=== PATIENT | female | born 1945 | race Caucasian/White ===

== ENCOUNTER 2018-11-30 09:07 | Outpatient (CLI) | payer MEDICARE ==
[~2018-11-30] VITALS: Ht 157.5 cm; Wt 51.8 kg
--- NOTE | ~2018-11-30 | HEMODYNAMI ---
PATIENT:LUZ MARIA SIDDIQUI MEDICAL RECORD: [id number] : 43 LOCATION:[facility] ADMISSION DATE: 11/30/18 Generatedon:11/30/201811:39 Patient name: LUZ MARIA SIDDIQUI Patient #: [id number] SSN: [id number] : 1945 Date of study: 11/30/2018 Page: Of Hemodynamic Procedure Report Patient Data Patient Demographics Procedure consent was obtained First Name: LUZ MARIA Gender: Female Last Name: CHEN : 1945 Patient #: [id number] Age: 73 year(s) Race: SSN: [id number] Additional ID: [id number] Contact details [address]: [address] [place] [address] State: [place]: [place] Zip code: [address] Past Medical History Allergies: No known allergies Admission Admission Data Admission Date: 11/30/2018 Admission Time: 9:07 Arrival Date: 11/30/2018 Arrival Time: 0:00 Height (in.): 62 BSA: 1.51 (m2) Height (cm.): 157.48 BMI: 20.97 (kg/m2) Weight (lbs.): 114.64 Weight (kg.): 52 Lab Results Lab Result Date: 11/30/2018 Lab Result Time: 0:00 Biochemistry Name Units Result Min Max BUN mg/dl 29 --(----)-* 7 18 Creatinine mg/dl 0.7 --(*---)-- 0.6 1.3 eGFR ml/min 87 -*(----)-- 90 120 NONAFRICAN CBC Name Units Result Min Max Hematocrit % 37.8 *-(----)-- 42 54 Hemoglobin g/dl 12.2 *-(----)-- 13.5 17.5 Procedure Procedure Types Cath Procedure Diagnostic Procedure LHC LHC w/Coronaries w/Grafts Procedure Description Procedure Date Procedure Date: 11/30/2018 Procedure Start Time: 11:25 Procedure End Time: 11:35 Procedure Staff Name Function Brian See MD Performing Physician Candice Izquierdo RT Monitor Rayna Stringer RT Scrub Mumtaz Zaragoza RN Nurse Procedure Data Cath Procedure Fluoroscopy Diagnostic fluoroscopy Total fluoroscopy Time: 2.7 time: 2.7 min min Diagnostic fluoroscopy Total fluoroscopy dose: 190 dose: 190 mGy mGy Contrast Material Contrast Material Type Amount (ml) Isovue 300 79 Entry Location Entry Primary Successful Side Size Upsize Upsize Entry Closure Succes sful Closure Location (Fr) 1 (Fr) 2 (Fr) Remarks Device Remarks Femoral Right 5 Fr Exoseal artery Estimated blood loss: 5 ml Diagnostic catheters Device Type Used For End Catheter Placement MULTIPACK Pigtail 5 Fr Procedure catheter MULTIPACK JL 4.0 5Fr Procedure catheter MULTIPACK 3DRC 5Fr Procedure catheter DIAGNOSTIC AR2 MOD 5 Fr Procedure catheter ([id number]) Procedure Complications No complications Procedure Medications Medication Administration Route Dosage 0.9% NaCl I.V. 100 ml/hr Oxygen etCO2 Nasal cannula 2 l/min Heparin Flush Bag added to field 2 bags (1000units/500ml NS) Lidocaine 2% added to field 20 Versed I.V. 1 mg Fentanyl I.V. 50 mcg Versed I.V. 1 mg Fentanyl I.V. 50 mcg Hemodynamics Rest BSA: 1.51 (m2) HGB: 12.2 (g/dl) O2 Consumption: Estimated: 130.48 (ml/min) O2 Co nsumption indexed: Estimated:86.41 (ml/min/m) Heart Rate: 57 (bpm) Snapshots Pre Cath Intra NCS Post Cath Vital Signs Time Heart Resp SPO2 etCO2 NIBP Rhythm Pain Sedation Rate (ipm) (%) (mmHg) (mmHg) Status Level (bpm) 11:10:37 58 17 100 30 124/55(70) NSR 0 (11) 10(A) , No pain 11:15:57 55 11 100 33 126/42(67) NSR 0 (11) 10(A) , No pain 11:20:58 54 12 100 32.2 121/50(95) NSR 0 (11) 10(A) , No pain 11:25:16 55 14 99 38.2 114/46(90) NSR 0 (11) 10(A) , No pain 11:29:32 53 19 97 29.2 107/42(88) NSR 0 (11) 9(A) , No pain 11:33:44 57 18 98 42 100/45(80) NSR 0 (11) 9(A) , No pain Medications Time Medication Route Dose Verified Delivered Reason Notes Eff ectiveness by by 11:20:06 0.9% NaCl I.V. 100 Mumtaz Mumtaz Per ml/hr Mila Zaragoza physician RN RN 11:20:17 Oxygen etCO2 2 Mumtaz Mumtaz for low 02 Nasal l/min Lorigan Lorigan sats cannula RN RN 11:20:29 Heparin Flush added 2 Mumtaz Mumtaz used for Bag to bags Lorigan Lorigan procedure (1000units/500ml field RN RN NS) 11:20:39 Lidocaine 2% added 20ml Mumtaz Mumtaz for local to vial Lorigan Lorigan anesthetic field RN RN 11:20:48 Versed I.V. 1 mg Mumtaz Mumtaz for Lorigan Lorigan sedation RN RN 11:20:55 Fentanyl I.V. 50 Mumtaz Mumtaz for mcg Lorigan Lorigan sedation RN RN 11:26:17 Versed I.V. 1 mg Mumtaz Mumtaz for Lorigan Lorigan sedation RN RN 11:26:22 Fentanyl I.V. 50 Mumtaz Mumtaz for mcg Lorigan Lorigan sedation RN web marketing strategist Log Time Note 10:48:39 Informed consent obtained and on chart 10:49:15 Time tracking: Regular hours (M-F 7:00 - 5:00) 10:49:19 Plan of Care:Hemodynamics will remain stable., Cardiac rhythm will remain stable., Comfort level will be maintained., Respiratory function will remain adequate., Patient/ family verbilizes understanding of procedure., Procedure tolerated without complication., Recovers from procedure without complications.. 10:49:21 Procedure Status Elective Heart Cath (OP). 10:49:23 Mumtaz Zaragoza RN sent for patient. Start room use. 10:49:26 Patient NPO since Midnight. 10:51:52 Patient Weight : 114.64 lbs 10:51:57 Patient Height : 62 inches 10:52:01 Arrival Date: 11/30/2018 12:00:00 AM 10:58:12 ACCPatient has been prescribed/administered the following anti-anginal medication within the last 2 weeks: Long-Acting Nitrates 10:59:01 ACC Patient presents with Stable Angina CCS Anginal Class 3--Marked limitation of physical activity, angina occurs with ordinary activity.. 10:59:51 Lab Result : BUN 29 mg/dl 10:59:51 Lab Result : eGFR NONAFRICAN 87 ml/min 10:59:51 Lab Result : Creatinine 0.7 mg/dl 10:59:51 Lab Result : Hemoglobin 12.2 g/dl 10:59:51 Lab Result : Hematocrit 37.8 % 11:00:55 Patient received from Pre/Post Procedure Room to CCL 1 Alert and oriented. Tansferred to table in Supine position. 11:00:56 Warm blankets applied, and joaquín hugger turned on for patient comfort. 11:00:57 Correct patient and procedure confirmed by team. 11:00:57 ECG and BP/O2 sat monitors applied to patient. 11:09:18 Vital chart was started 11:09:20 Baseline sample Acquired. 11:09:26 Rhythm: sinus bradycardia 11:09:27 Full Disclosure recording started 11:09:35 H&P Date Dictated: 11/28/2018 Within 30 days and on chart., H&P Addendum completed by physician on day of procedure. (MUST COMPLETE FOR ALL OUTPATIENTS). 11:09:36 Pre-procedure instructions explained to patient. 11:09:36 Pre-op teaching completed and patient verbalized understanding. 11:09:40 Family in patients room. 11:09:47 Patient allergic to No known allergies 11:09:50 Is patient on blood thinner?No 11:09:52 Patient diabetic? No. 11:09:55 Patient not . Patient is over age 55. 11:10:10 Previous problem with sedation/anesthesia? No ? 11:10:11 Snore? Yes 11:10:13 Sleep apnea? No 11:10:14 Opens mouth fully? No 11:10:15 Sticks out tongue? Yes 11:10:18 Airway obstruction? No ? 11:10:21 Dentures? Yes IN TIGHT 11:10:24 Pre procedure: right dorsailis pedis pulse 1+ Palpable, but thready & weak; easily obliterated 11:10:27 Patient pain scale 0/10 ?. 11:10:33 IV patent on arrival in left hand with 0.9% NaCl at [facility]. 11:10:35 Lab results completed and on chart. 11:10:38 Right groin area was prepped with chlora-prep and draped in sterile fashion 11:10:39 Alarms reviewed by R. N. 11:10:40 Sharps counted by scrub and verified by R.N. 11:10:43 Use device set Femoral Dx 11:10:44 ACIST Syringe (38117) opened to sterile field. 11:10:44 Bag Decanter (2002S) opened to sterile field. 11:10:45 ACIST Hand Control (25280) opened to sterile field. 11:10:45 ACIST Manifold (51613) opened to sterile field. 11:10:46 Tegaderm 4 x 4 (1626W) opened to sterile field. 11:10:47 Medline Cath Pack ([id number]) opened to sterile field. 11:10:48 DIAGNOSTIC Multipack 5Fr catheter set (MC5422) opened to sterile field. 11:10:49 SHEATH 5FR Blunt (AHW073) opened to sterile field. 11:10:49 EMERALD Guide Wire (052-664) opened to sterile field. 11:18:27 Zero performed for pressure channel P1 11:18:35 --------ALL STOP TIME OUT------ 11:18:35 Final Timeout: patient, procedure, and site verified with staff and physician. All members of the team are in agreement. 11:18:37 Right groin site verified by team. 11:18:40 Fire Safety Assessment: A--An alcohol-based skin anteseptic being used preoperatively., C--Open oxygen or nitrous oxide is being used., D--An ESU, laser, or fiber-optic light is being used. 11:18:43 Physical assessment completed. ASA score P 2 - A patient with mild systemic disease as per Brian See MD. 11:18:45 2) 60-89 Mildly reduced kidney function, and other findings (as for stage 1) point to kidney disease. 11:18:49 Maximum allowable contrast dose (3.7 X eGFR X 0.75)241 ml. 11:18:53 Sedation plan: IV Moderate Sedation Medication:Versed, Fentanyl 11:20:06 0.9% NaCl 100 ml/hr I.V. was administered by Mumtaz Zaragoza RN; Per physician; Verbal order read back and verified. 11:20:17 Oxygen 2 l/min etCO2 Nasal cannula was administered by Mumtaz Zaragoza RN; for low 02 sats; Verbal order read back and verified. 11:20:29 Heparin Flush Bag (1000units/500ml NS) 2 bags added to field was administered by Mumtaz Zaragoza RN; used for procedure; Verbal order read back and verified. 11:20:39 Lidocaine 2% 20ml vial added to field was administered by Mumtaz Zaragoza RN; for local anesthetic; Verbal order read back and verified. 11:20:48 Versed 1 mg I.V. was administered by Mumtaz Zaragoza RN; for sedation; Verbal order read back and verified. 11:20:55 Fentanyl 50 mcg I.V. was administered by Mumtaz Zaragoza RN; for sedation; Verbal order read back and verified. 11:25:18 Procedure started. 11:25:31 Local anesthetic to right femoral artery with Lidocaine 2% by Brian See MD.INITIAL ACCESS ONLY 11:26:03 A 5 Fr sheath was inserted into the Right Femoral artery 11:26:13 A MULTIPACK Pigtail 5 Fr catheter was advanced over the wire and used for Procedure. 11::17 Versed 1 mg I.V. was administered by Mumtaz Zaragoza RN; for sedation; Verbal order read back and verified. 11:26:22 Fentanyl 50 mcg I.V. was administered by Mumtaz Zaragoza RN; for sedation; Verbal order read back and verified. 11:27:01 LV gram done using AYOUB 11:27:07 Injector settings: Ml/sec: 10, Volume: 20, 11:27:21 EF : 50 % 11:27:22 Catheter removed. 11::27 A MULTIPACK JL 4.0 5Fr catheter was advanced over the wire and used for Procedure. 11:28:25 LCA angiography performed. 11:28:33 Catheter removed. 11::39 A MULTIPACK 3DRC 5Fr catheter was advanced over the wire and used for Procedure. 11:29:44 MAE to LAD angiography performed. 11:30:09 SVG to Diag angiography performed. 11:30:30 RCA angiography performed. 11:30:33 Catheter removed. 11:30:44 A DIAGNOSTIC AR2 MOD 5 Fr catheter ([id number]) was advanced over the wire and used for Procedure. 11:31:27 SVG to RCA angiography performed. 11:32:34 Catheter removed. 11:32:35 EXOSEAL 5Fr (EX500) opened to sterile field. 11:33:42 Sheath removed intact; hemostasis achieved with Exoseal to the Right Femoral artery. 11:33:43 Procedure ended.(Physican Out) 11:34:13 Fluoroscopy time 02.70 minutes. 11:34:18 Fluoroscopy dose: 190 mGy 11:34:18 Flurop Dose total: 190 11:34:22 Dose Area Product 9157 mGy/cm. 11:34:26 Contrast amount:Isovue 300 79ml. 11:34:29 Maximum allowable dose exceeded? No. 11:34:30 Sharps counted by scrub and verified by R.N. 11:34:33 Post-op/insertion site Right Femoral artery dressed using a 4 x 4 and Tegaderm. 11:34:36 Post-procedure physical assessment completed. ASA score P 2 - A patient with mild systemic disease as per Brian See MD. 11:34:42 Post procedure rhythm: sinus bradycardia 11:34:44 Estimated blood loss: 5 ml 11:34:45 Post procedure instruction explained to patient.Patient verbalizes understanding. 11:34:45 Patient needs reinforcement of post procedure teaching. 11:34:58 Procedure type changed to Cath procedure, Diagnostic procedure, LHC, LHC w/Coronaries w/Grafts 11:35:14 Procedure and supply charges have been captured, reviewed, submitted and are correct. 11:35:17 Procedure Complication : No complications 11:35:18 Vital chart was stopped 11:35:19 See physician's report for complete and final results. 11:35:22 Report given to Pre/Post Procedure Room. 11:35:24 Patient transfered to Pre/Post Procedure Room with Bed. 11:35:27 Procedure ended. 11:35:27 Full Disclosure recording stopped 11:35:30 End room use (Document Last) 11:38:55 End room use (Document Last) 11:39:14 End room use (Document Last) Device Usage Item Name Manufacture Quantity Catalog Hospital Part Current Minimal L ot# / Number Charge Number Stock Stock Serial# Code ACIST Acist 1 37254 648949 002194 133816 20 Etece (58612[employer] Bag Microtek 1 2001 366616 27430 544264 5 Decanter Medical Inc. () ACIST Hand Acist 1 22662 860460 428554 108905 5 Control Medical (66278) Systems Inc ACIST Acist 1 18148 153499 682294 746540 5 Manifold Medical (14156) Systems Inc Tegaderm 4 3M 1 1626W 734790 783195 862916 5 x 4 (1626W) Medline Medline 1 [id number] 421102 71977 697890 5 Cath Pack ([id number]) DIAGNOSTIC Cardinal 1 [id number] 327612 00562 740133 30 Multipack Health 5Fr catheter set (PQ6380) SHEATH 5FR Terumo 1 VUV709 472368 371305 142928 5 Blunt (HHT181) EMERALD Cardinal 1 502455 510889 593494 763609 5 Guide Wire Health (502455) MULTIPACK Cardinal 1 540819 5 Pigtail 5 Health Fr catheter MULTIPACK Cardinal 1 494370 5 JL 4.0 5Fr Health catheter MULTIPACK Cardinal 1 137792 5 3DRC 5Fr Health catheter DIAGNOSTIC Cardinal 1 [id number] 323079 010532 066052 20 AR2 MOD 5 Health Fr catheter (973730W) EXOSEAL 5Fr Cardinal 1 EX500 874183 528796 750024 10 (EX500) Health Signature Audit Arboles Stage Time Signature Unsigned Intra-Procedure 11/30/2018 Candice Izquierdo 11:38:55 AM RT(R) Intra-Procedure 11/30/2018 Mumtaz 11:39:14 AM Mila CIFUENTES Intra-Procedure 11/30/2018 Brian See 11:39:33 AM [id number] [place] [address]
[2018-11-30] MEDS ORDERED: COREG6.25 MG PO (09:32)
[2018-11-30] MEDS ORDERED: NORVASC5 MG PO (09:33)
[2018-11-30] MEDS ORDERED: ISOSORBIDE MONO30 M1 PO (09:34)
[2018-11-30] MEDS ORDERED: ULTRAM50 MG PO (09:35)
[2018-11-30 09:49] VITALS: BP 134/51; Ht 157.5 cm; Wt 51.8 kg
[2018-11-30 09:54] LABS: BASOPHILS 0.5 % (0-2); EOSINOPHILS 3.7 % (0-7); HEMATOCRIT 37.8 % (36.0-48.0); HEMOGLOBIN 12.2 g/dL (12-16); LYMPHOCYTES 37.9 % (15-50); MCH 29.7 pg (26.0-34.0); MCHC 32.3 g/dL (31.0-37.0); MEAN PLATELET VOLUME 9.3 fL (7.4-10.4); NEUTROPHILS 47.9 % (40-80); PLATELET COUNT 250 10x3/uL (130-400); RBC 4.11 10x6/uL (4.00-5.40); RDW 12.8 % (11.5-14.5); WBC 6.5 10x3/uL (4.8-10.8)
[2018-11-30 10:17] LABS: ALT (SGPT) 14 U/L (10-68); CHOLESTEROL, TOTAL 188 mg/dL (0-200); HDL CHOLESTEROL 63 mg/dL (32-96); LDL CHOLESTEROL 109 mg/dL (0-100); LDL-HDL RATIO 1.7 ratio (1.5-3.5); TRIGLYCERIDE 82 mg/dL (30-200)
[2018-11-30 10:24] LABS: CALC OSMOLALITY 281 mosm/kg (275-300); CALCIUM 8.8 mg/dL (8.5-10.1); CHLORIDE - SERUM 102 mmol/L (98-107); CREATININE - SERUM 0.7 mg/dL (0.6-1.3); GLUCOSE 107 mg/dL (74-106); POTASSIUM - SERUM 3.9 mmol/L (3.5-5.1); SODIUM 138 mmol/L (136-145); UREA NITROGEN 29 mg/dL (7-18); eGFR NON AFRICAN AMERICAN 87 mL/min (90-120)
--- NOTE | 2018-11-30 12:07 | NUR ---
PT IS ALERT, VISITING WITH FAMILY IN THE ROOM, HOB IS FLAT, DRESSING IS CDI TO RIGHT GROIN, AREA IS SOFT AND NONTENDER. SINUS SG, RATE IS 59, BP 102/48. PT DENIES ANY C/O CHEST PAIN. CALL LIGHT IN REACH
--- NOTE | 2018-11-30 12:20 | NUR ---
DR DONIS HAS ROUNDED ON PT
--- NOTE | 2018-11-30 12:41 | NUR ---
PT IS ALERT, DENIES ANY C/O. DRESSING IS CDI TO RIGHT GROIN, AREA IS SOFT AND NONTENDER. PEDAL PULSES PALPABLE. HOB FLAT. SINUS SG AT 57, BP IS 122/45, PT DENIES ANY C/O CHEST PAIN.
--- NOTE | 2018-11-30 13:06 | NUR ---
HOB ELEVATED 30 DEGREES, SANDWICH AND PO FLUIDS SERVED. DRESSING REMAINS CDI, PEDAL PULSES PALPABLE. NSR, RATE 65. BP IS 107/41. PT IS ALERT AND DENIES ANY C/O.
--- NOTE | 2018-11-30 14:07 | NUR ---
1325 HOB FULLY ELEVATED. DRESSING REMAINS CDI RIGHT GROIN, PEDAL PULSES PALPABLE. PT IS ALERT AND DENIES ANY C/O. HAS ASHLEY SANDWICH WITH NO C/O NAUSEA. 1340 IV DC'D WITH CATH INTACT. ASSISTED PT WITH DRESSING FOR DC TO HOME. PT IS ALERT, DRESSING CDI. 1345 ASSISTED PT TO THE BATHROOM, PT VOIDED LARGE QUANTITY OF URINE. 1355 DC INSTRUCTIONS REVIEWED WITH PT AND [id number] WHO VERBALIZE UNDERSTANDING. DRESSING REMAINS CDI RIGHT GROIN, PT IS ALERT AND DENIES ANY C/O. PT ESCORTED TO PRIVATE AUTO VIA WC BY NURSE WITH [id number] DRIVING HER HOME.
--- NOTE | 2018-12-08 13:30 | OP ---
PATIENT NAME: LUZ MARIA SIDDIQUI MEDICAL RECORD: [id number] :43 LOCATION:D.CAT ADMISSION DATE: SURGEON: FRANCOIS DONIS MD DATE OF OPERATION: 11/30/2018 PROCEDURES: 1. Left heart catheterization. 2. Selective coronary angiography. 3. Vein graft angiography. 4. MAE angiography. 5. Left ventriculogram. INDICATIONS: Angina and coronary artery disease. PROCEDURE IN DETAIL: After informed consent was obtained and after a detailed explanation of risks, benefits as well as alternative therapies, the patient elected to proceed with angiogram and heart catheterization. The right femoral area was prepped and draped in normal sterile fashion. Right femoral artery was cannulated via modified Seldinger technique with placement of 6-Spanish sheath. FINDINGS: Left ventriculogram was performed in standard 30-degree AYOUB view, reveals good cardiac wall motion, ejection fraction 50%. SELECTIVE CORONARY ANGIOGRAPHY: 1. Left main is with no significant angiographic disease. 2. Left anterior descending is totally occluded. 3. MAE to the LAD is widely patent. Distal LAD is small and diffusely diseased well, but widely patent. 4. Vein graft to the LAD diagonal is widely patent. Distal LAD diagonal is widely patent. 5. The left circumflex has mild irregularities. No flow limiting stenosis. The vein graft to the circumflex is closed. 6. Right coronary is totally occluded. 7. Vein graft to the right coronary artery is widely patent. Distal right coronary is widely patent. OVERALL IMPRESSION: Wide patency of the graft to the LAD, LAD diagonal, and RCA. Wide patency of the oneida circumflex. At this time, continue medical management of the coronary artery disease and cardiac risk factors. TRANSINT:[id number] Voice Confirmation ID: [id number] DOCUMENT ID: [id number] FRANCOIS DONIS MD at 1330 CC: [id number] DICTATION DATE: 11/30/18 1140 SUPERVISING CHEF: 11/30/18 1231 DEP CLI 11/30/[address] [address]
== END 2018-11-30 13:45 | disposition home or self-care (01) ==
LOC: D.CATH 09:07
PROVIDERS: ATTEND Internal Medicine Interventional Cardiology
DX: I25.110 Atherosclerotic heart disease of native coronary artery with unstable angina pectoris (principal)

== ENCOUNTER 2020-05-01 08:00 | Outpatient (CLI) | payer MEDICARE ==
[~2020-05-01 08:00] MED LIST: COREG6.25 MG PO; ISOSORBIDE MONO30 M1 PO; NORVASC5 MG PO; ULTRAM50 MG PO
[2020-05-01] MEDS ORDERED: OMEPRAZOLE20 M1 PO (16:15)
[2020-05-01 17:11] LABS: HEMATOCRIT 41.1 % (36.0-48.0); HEMOGLOBIN 13.3 g/dL (12-16); MCHC 32.4 g/dL (31.0-37.0); MCV 92.6 fL (80.0-100.0); MEAN PLATELET VOLUME 8.8 fL (7.4-10.4); RBC 4.44 10x6/uL (4.00-5.40); RDW 12.8 % (11.5-14.5); WBC 7.5 10x3/uL (4.8-10.8)
[2020-05-01 17:14] LABS: BILIRUBIN NEGATIVE (NEGATIVE); KETONE NEGATIVE (NEGATIVE); NITRITE NEGATIVE (NEGATIVE); UROBILINOGEN NORMAL mg/dL (< 2)
[2020-05-01 17:15] LABS: SQUAMOUS EPITHELIAL 0-5 HPF (0-4); WHITE CELLS - URINE 0-5 HPF (0-4)
[2020-05-01 17:16] LABS: BACTERIA MODERATE HPF (NONE SEEN)
[2020-05-01 17:18] LABS: APTT 25.5 SECONDS (22.8-39.4); INR 0.98 (0.85-1.17)
[2020-05-01 17:27] LABS: ALBUMIN 3.9 g/dL (3.4-5.0); ANION GAP 14.7 mmol/L (8-16); BILIRUBIN - TOTAL 0.64 mg/dL (0.2-1.3); CALCIUM 8.7 mg/dL (8.5-10.1); CARBON DIOXIDE 26.8 mmol/L (21.0-32.0); CREATININE - SERUM 0.9 mg/dL (0.6-1.3); POTASSIUM - SERUM 3.5 mmol/L (3.5-5.1); PROTEIN - SERUM 6.9 g/dL (6.4-8.2)
[2020-05-03 13:28] VITALS: BMI 20.7
== END 2020-05-01 08:01 | disposition home or self-care (01) ==
LOC: D.OPS 08:00 → D.SDCHOLD 05-07 07:30 → EDSTATUS 05-07 07:30 → D.SDCHOLD 05-07 09:00
PROVIDERS: ATTEND Thoracic Surgery (Cardiothoracic Vascular Surgery)
DX: I65.29 Occlusion and stenosis of unspecified carotid artery (principal)

== ENCOUNTER 2020-05-03 12:17 | Outpatient (CLI) | payer MEDICARE ==
[~2020-05-03] VITALS: Ht 157.5 cm; Wt 51.4 kg
[~2020-05-03 12:17] MED LIST changes: +OMEPRAZOLE20 M1 PO
[2020-05-03 13:28] VITALS: Ht 157.5 cm; Wt 51.4 kg
[2020-05-03 14:07] LABS: BILIRUBIN NEGATIVE (NEGATIVE); KETONE NEGATIVE (NEGATIVE); NITRITE NEGATIVE (NEGATIVE); UROBILINOGEN NORMAL mg/dL (< 2)
[2020-05-03 14:08] LABS: BACTERIA MODERATE HPF (NONE SEEN); SQUAMOUS EPITHELIAL 0-5 HPF (0-4); WHITE CELLS - URINE RARE HPF (0-4)
== END 2020-05-03 13:36 | disposition home or self-care (01) ==
LOC: D.OPS 12:17
PROVIDERS: ATTEND Thoracic Surgery (Cardiothoracic Vascular Surgery)
DX: N39.0 Urinary tract infection, site not specified (principal)

== ENCOUNTER 2020-05-20 07:30 | Inpatient (IN) | payer MEDICARE ==
[~2020-05-20] VITALS: Ht 157.5 cm; Wt 53.4 kg
[2020-05-20] VITALS (16 sets, daily range): BP systolic 97–137; BP diastolic 40–68; Ht 157.5 cm; Wt 53.4 kg
[2020-05-20 12:05] LABS: APTT 26.5 SECONDS (22.8-39.4); INR 1.19 (0.85-1.17)
--- NOTE | 2020-05-20 12:08 | NUR ---
CVL AND ARTERIAL LINE PLACED BY ANESTHESIA, CARRIE.
[2020-05-20 16:01] LABS: BILIRUBIN NEGATIVE (NEGATIVE); KETONE 3+ mg/dL (NEGATIVE); NITRITE NEGATIVE (NEGATIVE); UROBILINOGEN NORMAL mg/dL (< 2)
[2020-05-20 16:03] LABS: BACTERIA FEW HPF (NONE SEEN); GRANULAR CAST 0-5 LPF (NONE SEEN); SQUAMOUS EPITHELIAL 0-5 HPF (0-4); WHITE CELLS - URINE 0-5 HPF (0-4)
[2020-05-21] VITALS (28 sets, daily range): BP systolic 104–150; BP diastolic 42–93
[2020-05-21 05:16] LABS: BASOPHILS 0.4 % (0-2); EOSINOPHILS 2.1 % (0-7); HEMATOCRIT 35.1 % (36.0-48.0); HEMOGLOBIN 11.6 g/dL (12-16); IMMATURE GRANULOCYTES 0.1 % (0-5); LYMPHOCYTES 26.4 % (15-50); MCH 29.9 pg (26.0-34.0); MCV 90.5 fL (80.0-100.0); MEAN PLATELET VOLUME 8.7 fL (7.4-10.4); MONOCYTES 13.3 % (2-11); NEUTROPHIL ABS# 4.36 10x3/uL (1.56-6.13); NEUTROPHILS 57.7 % (40-80); PLATELET COUNT 205 10x3/uL (130-400); RBC 3.88 10x6/uL (4.00-5.40); RDW 12.9 % (11.5-14.5); WBC 7.6 10x3/uL (4.8-10.8)
[2020-05-21 05:46] LABS: CALC OSMOLALITY 269 mosm/kg (275-300); CARBON DIOXIDE 23.2 mmol/L (21.0-32.0); CHLORIDE - SERUM 103 mmol/L (98-107); CREATININE - SERUM 0.6 mg/dL (0.6-1.3); GLUCOSE 81 mg/dL (74-106); POTASSIUM - SERUM 3.3 mmol/L (3.5-5.1); SODIUM 136 mmol/L (136-145); UREA NITROGEN 10 mg/dL (7-18); eGFR NON AFRICAN AMERICAN > 90 mL/min (90-120)
--- NOTE | 2020-05-21 15:37 | OP ---
PATIENT NAME: LUZ MARIA SIDDIQUI MEDICAL RECORD: [id number] :44 LOCATION:[facility] ADMISSION DATE:05/20/20 SURGEON: ZIYAD MEDEROS MD DATE OF OPERATION: 05/20/2020 SURGEON: Ziyad Mederos MD PROCEDURE PERFORMED: Left carotid endarterectomy. PREOPERATIVE DIAGNOSIS: Symptomatic left carotid stenosis. POSTOPERATIVE DIAGNOSIS: Symptomatic left carotid stenosis. ANESTHESIA: General endotracheal anesthesia. ESTIMATED BLOOD LOSS: 10 mL. SPECIMENS: Plaque. COMPLICATIONS: None. CONDITION: Stable. DISPOSITION: CV ICU. OPERATIVE FINDINGS: 1. Irregular and densely calcified plaque in the carotid bulb and proximal internal carotid artery. The plaque feathered well distally and a CorMatrix patch was used for closure. 2. Neurologically intact to ICU. OPERATIVE INDICATIONS: Symptomatic left severe carotid stenosis. DESCRIPTION OF PROCEDURE: The patient was brought to the operating suite. General anesthesia was obtained, the patient was prepped and draped. An oblique incision was made in the left neck and taken down through the subcutaneous tissue to the common carotid, which was dissected out sparing the vagus nerve. Large facial venous branch was divided between ligatures and suture ligatures. Smaller branches divided between ligatures. External carotid and thyroid branch were dissected out and encircled with vessel loop. The hypoglossal nerve was identified ANSA was clipped and exposure of the distal internal carotid. Heparin was given. After the heparin had circulated backbleeding the internal carotid was controlled with a bulldog clamp and flow with a vascular clamp and backbleeding in the external carotid and thyroid branch controlled with vessel loops. After the EEG was normal for 2 minutes and the cerebral oximetry remained normal, arteriotomy was begun in the common carotid artery and taken out through the region of dense calcification into a relatively normal region of internal carotid. Backbleeding was inspected and it was excellent from the internal carotid and external carotid. The plaque was divided in the common carotid artery with an eversion endarterectomy of the external carotid and then due to the thick, irregular plaque, it was actually split apart into 2 small pieces distally, but it feathered well thoroughly irrigated. All bits of loose debris were removed. The patch was fashioned to the appropriate size and sutured along the edge of the arteriotomy. Prior to completing the anastomosis, backbleeding was again allowed from all 3 major vessels and thorough irrigation OPERATIVE REPORT [id number] LUZ MARIA SIDDIQUI of endarterectomy bed was performed. Anastomosis was completed. Flow was restored first to the external carotid and then to the internal carotid. Interrupted patch suture was used for hemostasis. Protamine was given. Thorough irrigation was undertaken. A drain was placed through a separate stab wound. Hemostasis was ensured. Antibiotic irrigation was performed. Neck was closed in 3 layers and Dermabond on the skin. Needle and sponge counts were correct. Anesthesia reversed. The patient is neurologically intact to CV ICU. TRANSINT:[id number] Voice Confirmation ID: [id number] DOCUMENT ID: [id number] ZIYAD MEDEROS MD at 1537 CC: ARASELI YOUNG [id number] DICTATION DATE: 05/20/20 1342 LOGISTICS SUPPLY OFFICER: 05/20/20 8654 ADM IN [facility] [address] [place] [address]
[2020-05-21] MEDS ORDERED: PLAVIX75 MG PO (15:43)
[2020-05-21] MEDS ORDERED: ASPIRIN81 MG PO (15:44)
[2020-05-21] MEDS ORDERED: ULTRAM50 MG PO (15:47)
[2020-05-22] VITALS (11 sets, daily range): BP systolic 131–155; BP diastolic 41–72
--- NOTE | 2020-05-22 06:19 | NUR ---
Shift summary: Patient ambulated frequently to bathroom with standby assist. Denies any pain. Good intake of oral fluids. Up to chair this morning.
--- NOTE | 2020-05-22 09:26 | NUR ---
CVL DCD PER PROTOCOL TIP INTACT
--- NOTE | 2020-05-22 10:57 | NUR ---
PT DCD WITH FRIEND, DENIES ALL QUESTIONS
== END 2020-05-22 10:57 | disposition home or self-care (01) | DRG 39 ==
LOC: D.SDCHOLD 07:30 → D.CVICU 08:00 → D.SDCHOLD 08:00 → D.CVICU 13:11 → D.SDCHOLD 05-21 07:30 → D.CVICU 05-22 10:57
PROVIDERS: ADMIT Thoracic Surgery (Cardiothoracic Vascular Surgery); ATTEND Thoracic Surgery (Cardiothoracic Vascular Surgery)
PROC: 03CL0ZZ Extirpation of Matter from Left Internal Carotid Artery, Open Approach (ICD-10-PCS; principal; 2020-05-20 09:00)
DX: I65.22 Occlusion and stenosis of left carotid artery (principal); I10 Essential (primary) hypertension; K21.9 Gastro-esophageal reflux disease without esophagitis; M19.90 Unspecified osteoarthritis, unspecified site

== ENCOUNTER 2020-06-28 17:02 | Inpatient (IN) | payer MEDICARE ==
[~2020-06-28] VITALS: Ht 157.5 cm; Wt 49.0 kg
[~2020-06-28 17:02] MED LIST changes: +ASPIRIN81 MG PO; +PLAVIX75 MG PO
[2020-06-28 17:31] LABS: BASOPHILS 0.2 % (0-2); EOSINOPHILS 2.2 % (0-7); HEMATOCRIT 39.4 % (36.0-48.0); HEMOGLOBIN 12.9 g/dL (12-16); IMMATURE GRANULOCYTES 0.2 % (0-5); LYMPHOCYTE ABS# 2.64 10x3/uL (1.18-3.74); LYMPHOCYTES 27.6 % (15-50); MCH 30.2 pg (26.0-34.0); MCHC 32.7 g/dL (31.0-37.0); MCV 92.3 fL (80.0-100.0); MEAN PLATELET VOLUME 9.2 fL (7.4-10.4); MONOCYTES 8.2 % (2-11); NEUTROPHIL ABS# 5.89 10x3/uL (1.56-6.13); NEUTROPHILS 61.6 % (40-80); RBC 4.27 10x6/uL (4.00-5.40); RDW 13.8 % (11.5-14.5); WBC 9.6 10x3/uL (4.8-10.8)
[2020-06-28 17:36] LABS: PLATELET COUNT 322 10x3/uL (130-400)
[2020-06-28 17:40] LABS: CALC OSMOLALITY 276 mosm/kg (275-300); CALCIUM 8.9 mg/dL (8.5-10.1); CARBON DIOXIDE 25.1 mmol/L (21.0-32.0); CHLORIDE - SERUM 102 mmol/L (98-107); CREATININE - SERUM 0.8 mg/dL (0.6-1.3); GLUCOSE 96 mg/dL (74-106); POTASSIUM - SERUM 3.6 mmol/L (3.5-5.1); SODIUM 139 mmol/L (136-145); UREA NITROGEN 10 mg/dL (7-18); eGFR NON AFRICAN AMERICAN 74 mL/min (90-120)
--- NOTE | 2020-06-28 17:54 | NUR ---
JD ZAVALA, WITH [facility], AT BEDSIDE FOR EVALUATION.
[2020-06-28 18:00] LABS: ALBUMIN 3.4 g/dL (3.4-5.0); ALKALINE PHOSPHATASE 156 U/L (30-120); ALT (SGPT) 21 U/L (10-68); BILIRUBIN - TOTAL 0.73 mg/dL (0.2-1.3); CKMB 6.2 U/L (0.0-3.6); CREATINE KINASE 258 UL (21-215); MAGNESIUM - SERUM 2.1 mg/dL (1.8-2.4); PRO BNP 3858 pg/mL (0-450); PROTEIN - SERUM 6.8 g/dL (6.4-8.2)
[2020-06-28 18:06] LABS: TROPONIN-I 0.922 ng/mL (0.000-0.060)
--- NOTE | 2020-06-28 20:26 | NUR ---
ARRIVED VIA STSRETCHER FROM ER. NO DISTRESS NOTED.
[2020-06-28] MEDS ORDERED: MULTI-DAY VITAM1 TAB PO (20:38)
[2020-06-28 20:45] VITALS: BP 152/58
[2020-06-28 21:28] VITALS: BP 152/58; BMI 19.6
--- NOTE | 2020-06-28 22:13 | NUR ---
VSS. SB PER CM HR 54. ADMISSION PER M AGUSTIN CIFUENTES. IV TO LAC WITH NS AT 50CC/HR. IV PATENT. UP TO BR WITH ASSIST. VOIDED MODERATE AMOUNT OF URINE. BACK TO BED WITH ASSIST. PT HAS C/O CONSTIPATION. DUCOLAX PO GIVEN IN ER PRIOR TO ARRIVAL ON FLOOR. SALAS PATTON ORIENTED TO PERSON, PLACE AND TIME. EREN. SR UP X2, CALL LIGHT WITHIN REACH.
--- NOTE | 2020-06-29 00:43 | NUR ---
EKG DONE. PT DENIES ANY DISCOMFORT. SR UP X2, CALL LIGHT WITHIN REACH.
--- NOTE | 2020-06-29 00:54 | NUR ---
PT HAD A RUN OF 8 VTACH PER MARKETING PROJECT COORDINATOR. PT ASYMPTOMATIC.
[2020-06-29 01:33] VITALS: BP 143/60
[2020-06-29 01:34] VITALS: BP 143/60
--- NOTE | 2020-06-29 02:21 | NUR ---
PT RESTING WITH EYES CLOSED. RESP EVEN AND REGULAR. SR UP X2, CALL LIGHT WITHIN REACH.
[2020-06-29 02:30] LABS: CKMB 3.3 U/L (0.0-3.6); CREATINE KINASE 164 UL (21-215); TROPONIN-I 0.613 ng/mL (0.000-0.060)
--- NOTE | 2020-06-29 04:24 | NUR ---
PT RESTING WITH EYES CLOSED. RESP EVEN AND REGULAR. CALL LIGHT WITHIN REACH.
[2020-06-29 06:11] VITALS: BP 173/72
--- NOTE | 2020-06-29 06:25 | NUR ---
MORPHINE 2MG SIVP GIVEN FOR C/O CHRONIC L KNEE PAIN. BP ELEVATED THIS AM. EKG DONE. SR/SB PER CM. PT NPO UNTIL SEEN BY CARDIOLOGY. NEEDS MET; WILL CONTINUE TO MONITOR.
[2020-06-29 06:48] LABS: BASOPHILS 0.3 % (0-2); EOSINOPHILS 4.4 % (0-7); HEMATOCRIT 34.6 % (36.0-48.0); HEMOGLOBIN 11.1 g/dL (12-16); IMMATURE GRANULOCYTES 0.2 % (0-5); LYMPHOCYTE ABS# 1.79 10x3/uL (1.18-3.74); LYMPHOCYTES 28.1 % (15-50); MCH 29.4 pg (26.0-34.0); MCHC 32.1 g/dL (31.0-37.0); MCV 91.5 fL (80.0-100.0); MEAN PLATELET VOLUME 9.6 fL (7.4-10.4); MONOCYTES 12.1 % (2-11); NEUTROPHILS 54.9 % (40-80); PLATELET COUNT 281 10x3/uL (130-400); RBC 3.78 10x6/uL (4.00-5.40); RDW 13.9 % (11.5-14.5)
[2020-06-29 06:55] LABS: WBC 6.4 10x3/uL (4.8-10.8)
--- NOTE | 2020-06-29 07:00 | NUR ---
RECEIVED REPORT. ASSUMED CARE OF PATIENT. PATIENT RESTING WELL WITH EYES OPEN, DENIES PAIN. WHITE BOARD UPDATED, BEDSIDE SHIFT REPORT COMPLETE. NO DISTRESS. CALL LIGHT WITHIN REACH.
[2020-06-29 07:24] LABS: ALBUMIN 2.7 g/dL (3.4-5.0); ALKALINE PHOSPHATASE 123 U/L (30-120); ALT (SGPT) 16 U/L (10-68); BILIRUBIN - TOTAL 0.52 mg/dL (0.2-1.3); CALC OSMOLALITY 280 mosm/kg (275-300); CALCIUM 8.1 mg/dL (8.5-10.1); CARBON DIOXIDE 26.6 mmol/L (21.0-32.0); CHLORIDE - SERUM 106 mmol/L (98-107); CKMB 2.4 U/L (0.0-3.6); CREATINE KINASE 136 UL (21-215); CREATININE - SERUM 0.6 mg/dL (0.6-1.3); GLUCOSE 84 mg/dL (74-106); MAGNESIUM - SERUM 2.1 mg/dL (1.8-2.4); PHOSPHOROUS 3.4 mg/dL (2.5-4.9); PROTEIN - SERUM 5.6 g/dL (6.4-8.2); SODIUM 142 mmol/L (136-145); UREA NITROGEN 11 mg/dL (7-18); eGFR NON AFRICAN AMERICAN > 90 mL/min (90-120)
[2020-06-29 07:37] LABS: APTT 28.5 SECONDS (22.8-39.4); INR 1.1 (0.85-1.17); PROTIME 13.1 SECONDS (11.6-15.0)
[2020-06-29 08:26] VITALS: BP 155/60
--- NOTE | 2020-06-29 11:15 | NUR ---
ASSISTED PATIENT OOB TO RESTROOM AND BACK TO BED. CALL LIGHT WITHIN REACH. NO DISTRESS. DENIES NEEDS.
[2020-06-29 12:43] VITALS: Ht 157.5 cm; Wt 49.0 kg
[2020-06-29 13:17] LABS: CKMB 2.2 U/L (0.0-3.6); CREATINE KINASE 124 UL (21-215)
[2020-06-29 13:20] LABS: TROPONIN-I 0.335 ng/mL (0.000-0.060)
[2020-06-29 15:20] VITALS: BP 107/42
--- NOTE | 2020-06-29 19:52 | NUR ---
INITIAL ROUNDS COMPLETED. PT DENIED ANY DISCOMFORT. SR UP X3, CALL LIGHT WITHIN REACH.
[2020-06-29 21:01] VITALS: BP 175/50; BP 75/50
--- NOTE | 2020-06-29 23:54 | NUR ---
ASSESSMENT COMPLETED AT 2009 HRS. VSS. SR PER CM HR 65. ALERT AND ORIENTED TO PERSON, PLACE AND TIME. JASON. PALPABLE PERIPHERAL PULSES. IV TO LAC WITH NS AT 50CC/HR. IV PATETN. LUNGS ESSENTIALLY CTA. ABD SOFT WITH ACTIVE BS NOTED. AREA AROUND ANUS EXCORIATED. MARY JO'S APPLIED. L LEG MINIMAL WT BEARING. ASSISTED PT TO BR. VOISED 250CC OF YELLOW URINE. ASSISTED BACK TO BED. PM MEDS GIVEN. PT CURRENTLY RESTING WITH EYES CLOSED. RESP EVEN AND REGULAR. SR UP X2, CALL LIGHT WITHIN REACH.
[2020-06-30 03:07] VITALS: BP 138/52
--- NOTE | 2020-06-30 03:52 | NUR ---
PT RESTING WITH EYES CLOSED. RESP EVEN AND REGULAR. SR UP X2, CALL LIGHT WITHIN REACH.
--- NOTE | 2020-06-30 06:08 | NUR ---
VSS THROUGHOUT NIGHT. SR PER CM. PT DENIED ANY CP. NEEDS MET; WILL CONTINUE TO MONITOR.
[2020-06-30 06:24] LABS: BASOPHILS 0.5 % (0-2); EOSINOPHILS 6.4 % (0-7); HEMATOCRIT 32.8 % (36.0-48.0); HEMOGLOBIN 10.4 g/dL (12-16); IMMATURE GRANULOCYTES 0.3 % (0-5); LYMPHOCYTE ABS# 1.68 10x3/uL (1.18-3.74); LYMPHOCYTES 28.9 % (15-50); MCH 29.4 pg (26.0-34.0); MCHC 31.7 g/dL (31.0-37.0); MCV 92.7 fL (80.0-100.0); MEAN PLATELET VOLUME 9.4 fL (7.4-10.4); MONOCYTES 13.4 % (2-11); NEUTROPHIL ABS# 2.94 10x3/uL (1.56-6.13); NEUTROPHILS 50.5 % (40-80); PLATELET COUNT 247 10x3/uL (130-400); RBC 3.54 10x6/uL (4.00-5.40); RDW 13.9 % (11.5-14.5); WBC 5.8 10x3/uL (4.8-10.8)
--- NOTE | 2020-06-30 07:00 | NUR ---
RECEIVED REPORT. ASSUMED CARE OF PATIENT. CALL LIGHT WITHIN REACH. WHITE BOARD UPDATED, BEDSIDE SHIFT REPORT COMPLETE. PATIENT HAS NO COMPLAINTS AT THIS TIME. NO DISTRESS NOTED.
[2020-06-30 07:11] LABS: ALBUMIN 2.6 g/dL (3.4-5.0); ALKALINE PHOSPHATASE 115 U/L (30-120); ALT (SGPT) 17 U/L (10-68); BILIRUBIN - TOTAL 0.46 mg/dL (0.2-1.3); CALCIUM 8.6 mg/dL (8.5-10.1); CARBON DIOXIDE 26.5 mmol/L (21.0-32.0); CHLORIDE - SERUM 105 mmol/L (98-107); CREATININE - SERUM 0.6 mg/dL (0.6-1.3); GLUCOSE 108 mg/dL (74-106); MAGNESIUM - SERUM 2.3 mg/dL (1.8-2.4); PROTEIN - SERUM 5.4 g/dL (6.4-8.2); SODIUM 139 mmol/L (136-145); eGFR NON AFRICAN AMERICAN > 90 mL/min (90-120)
[2020-06-30 07:12] LABS: CALC OSMOLALITY 276 mosm/kg (275-300); PHOSPHOROUS 2.4 mg/dL (2.5-4.9); POTASSIUM - SERUM 4.1 mmol/L (3.5-5.1); UREA NITROGEN 8 mg/dL (7-18)
--- NOTE | 2020-06-30 07:28 | NUR ---
PATIENT EXTREMELY UPSET, CRYING, REQUESTING TO GO HOME. PATIENT STATES SHE CANT GET CARES FAST ENOUGH BUT WHEN SHE DOES GET CARES, THEY ARE EXCELLENT. PATIENT COMPLAINS SHE DOES NOT HAVE A WALKER HERE AND UNABLE TO GO TO THE BATHROOM WHEN SHE NEEDS TO GO. THIS SAILOR CONTACTED PHYSICAL THERAPY AND HAS REQUESTED A WALKER FOR PATIENT. THIS SAILOR APOLOGIZED TO PATIENT FOR DELAY IN CARES. QUESTIONED PROGRAMS MANAGER NURSE ABOUT ACTIVITIES WITH PATIENT THROUGHOUT THE NIGHT AND WAS TOLD PATIENTS NURSE WAS IN PATIENT ROOM MOST OF THE NIGHT PROVIDING ADLS TO PATIENT. WILL CONTINUE TO MONTIOR PATIENT USE OF CALL LIGHT.
--- NOTE | 2020-06-30 07:57 | NUR ---
ANSWERED PATIENT CALL LIGHT, ASSISTED PATIENT OFF THE BEDPAN. OFFERED TO ASSIST TO CHAIR AT BEDSIDE PATIENT COMPLAINING SHE HAS TO LAY IN THE BED AND AT HOME SHE IS ABLE TO DO WHAT SHE WANTS. PATIENT REFUSED TO GET OOB TO CHAIR AT BEDSIDE AND CONTINUES TO REQUEST FOR MD ORDER TO GO HOME. PATIENT STATES SHE HAS HAD NO CHEST PAIN SINCE SHE WAS ADMITTED AND NOW HER BOWELS ARE MOVING AND SHE FEELS BETTER AND WANTS TO CANCEL ALL TEST AND GO HOME AND SHE DOESNT WANT TO COME BACK FOR ANY TEST EITHER. INFORMED PATIENT THIS NEWSPAPER OR PERIODICAL EDITOR WOULD MAKE HER REQUEST KNOWN TO THE PROVIDERS.
[2020-06-30 08:27] VITALS: BP 155/72
--- NOTE | 2020-06-30 08:30 | NUR ---
PATIENT PAN SHOVER LIGHT AGAIN, WONDERING WHERE HER BREAKFAST IS, THIS INTERNET MERCHANT INFORMED HER THAT DIETARY (ANGEL) HAS BEEN NOTIFIED AND ANGEL IS BRINGING HER TRAY TO THE [facility] SINCE SHE IS REFUSING ALL TEST AND WISHES TO GO HOME.
--- NOTE | 2020-06-30 09:50 | NUR ---
PATIENT NOW REQUESTING MEDICATION TO STOP FREQUENT BOWEL MOVEMENTS. EXPLAINED THAT WE GAVE HER MEDCIATION TO GET HER BOWELS GOING. PATIENT STILL ADAMENT THAT SHE WANTS TO GO HOME AND THAT HER FAMILY FROM [place] WILL BE HERE AFTER [facility] TO PICK HER UP. EXPLAINED TO PATEINT THAT SHE STILL DOES NOT HAVE ANY DISCHARGE ORDERS WRITTEN. PATIENT STATES SHE WILL NOT GO AMA BUT DOES WANT TOT LEAVE TODAY.
--- NOTE | 2020-06-30 12:05 | NUR ---
ANSWERED CALL LIGHT AGAIN, PATIENT ASSISTED ON BEDPAN. PATIENT AGAIN REQUESTING IV OUT AND ID BAND CUTOFF. NO DISTRESS. INFORMED PATIENT THAT IV AND ID WRIST BAND CAN BE REMOVED PRIOR TO LEAVING FACILITY.
[2020-06-30 12:10] VITALS: BP 120/51
--- NOTE | 2020-06-30 12:47 | NUR ---
PAGED TO OBTAIN "OKAY" TO DISCHARGE PATIENT DUE TO HER BEING ADAMENT THAT SHE IS LEAVING. ATTENDING WOULD RATHER PATIENT BE DISCHARGED OPPOSED TO PATEINT GOING AMA. AWAITING CALLBACK AT THIS TIME.
--- NOTE | 2020-06-30 13:09 | NUR ---
SPOKE WITH AND IF PATIENT LEAVES IT WILL BE AMA DUE TO SHE WAS A TRANSFER TO [facility] FROM [place] AND HE HAS GIVEN HIS ORDERS AND RECOMMENDATIONS AND PATIENT REFUSES TO NOW CARRY OUT THOSE ORDERS AND IS READY TO LEAVE BEFORE TESTING IS COMPLETE. ATTENDING SEO ANALYST NOTIFIED THAT IF PT LEAVES IT WILL BE AMA PER CARDIOLOGY STANDPOINT.
--- NOTE | 2020-06-30 14:12 | NUR ---
PATIENT LEFT UNIT AT THIS TIME WITH ALL BELONGINGS. PATIENT LEFT UNIT AMA VIA WHEELCHAIR. PATIENT IN NO DISTRESS UPON LEAVING UNIT. AMA FORM SIGNED AND INCIDENT FORM COMPLETE IN [facility] EVENT REPORTING.
== END 2020-06-30 14:35 | disposition left against medical advice (07) | DRG 392 ==
LOC: D.ER 17:02 → OBSVTIME 19:30 → D.M2 19:30
PROVIDERS: Student in an Organized Health Care Education/Training Program; ADMIT Emergency Medicine; ATTEND Emergency Medicine
DX: K59.00 Constipation, unspecified (principal); R77.8 Other specified abnormalities of plasma proteins; I25.10 Atherosclerotic heart disease of native coronary artery without angina pectoris; M81.0 Age-related osteoporosis without current pathological fracture; M19.90 Unspecified osteoarthritis, unspecified site; I10 Essential (primary) hypertension; K21.9 Gastro-esophageal reflux disease without esophagitis